=== PATIENT | female | born 1980 | race Two or more races ===

== ENCOUNTER 2022-07-15 13:00 | Emergency (ER) | payer BC, OTHER ==
[~2022-07-15] VITALS: Ht 157.5 cm; Wt 84.0 kg
[2022-07-15 13:39] VITALS: BP 121/57
[2022-07-15 14:19] LABS: Basophils # (auto) 0.1 10 ^3/uL (0-0.2); Basophils % (auto) 0.5 % (0.0-2.0); Eosinophils # (auto) 0 10 ^3/uL (0-0.8); Mean Corpuscular Volume 84.2 fL (80.0-100.0); Monocytes # (auto) 0.4 10 ^3/uL (0-1.3); Red Cell Distribution Width 14.2 % (11.8-14.3)
[2022-07-15 14:20] LABS: Eosinophils % (auto) 0.4 % (0.0-7.0); Hematocrit 32.6 % (36.0-46.0); Hemoglobin 10.2 g/dL (12.2-16.2); Lymphocytes # (auto) 1.3 10 ^3/uL (0.4-5.4); Lymphocytes % (auto) 10.8 % (10.0-50.0); Mean Corpuscular Hemoglobin 26.5 pg (28.0-32.0); Mean Corpuscular Hgb Conc. 31.4 g/dL (32.0-36.0); Monocytes % (auto) 3.2 % (0.0-12.0); Neutrophils # (auto) 10.2 10 ^3/uL (1.6-8.6); Neutrophils % (auto) 85.1 % (37.0-80.0); Red Blood Cells 3.87 10^6/uL (4.0-5.20); White Blood Cell 11.9 10^3/uL (4.4-10.8)
[2022-07-15 14:37] LABS: Albumin 2.5 g/dL (3.4-5.0); Anion Gap 11 (5-15); Blood Urea Nitrogen 18 mg/dL (7-18); Calcium 8.7 mg/dL (8.5-10.1); Carbon Dioxide 22 mmol/L (21-32); Chloride 101 mmol/L (98-107); Glucose 355 mg/dL (74-106); Potassium 3.8 mmol/L (3.5-5.1); Sodium 134 mmol/L (136-145)
[2022-07-15 14:40] LABS: Alanine Aminotransferase 13 U/L (13-56); Alkaline Phosphatase 150 U/L (45-117); Aspartate Aminotransferase < 3 U/L (15-37); BUN/Creatinine Ratio 12.1; Bilirubin, Total 0.2 mg/dL (0.2-1.0); GFR African American 49 mL/min; GFR Non-African American 40 mL/min; Total Protein 9.3 g/dL (6.4-8.2)
[2022-07-15 14:41] LABS: Lactic Acid w/Reflex 2.4 mmol/L (0.4-2.0)
[2022-07-15 22:32] LABS: Urine Bacteria FEW /hpf (None Seen); Urine Blood Negative /uL (Negative); Urine Hyaline Cast FEW /lpf (0 - 2); Urine Mucus FEW (None Seen); Urine Specific Gravity 1.029 (1.001-1.035); Urine WBC 45 /hpf (0 - 5)
== END 2022-07-15 21:18 | disposition left against medical advice (07) ==
LOC: ER 13:00
DX: M79.671 Pain in right foot (principal); Z53.21 Procedure and treatment not carried out due to patient leaving prior to being seen by health care provider
CPT/HCPCS: 36415; 80053; 81001; 83605; 85025; 87040

== ENCOUNTER 2022-07-19 08:07 | Emergency (ER) | payer BC, MEDICAID ==
[~2022-07-19] VITALS: Ht 157.5 cm; Wt 84.0 kg
[2022-07-19 08:36] LABS: Eosinophils # (auto) 0.1 10 ^3/uL (0-0.8); Lymphocytes # (auto) 1.5 10 ^3/uL (0.4-5.4); Red Blood Cells 3.47 10^6/uL (4.0-5.20)
[2022-07-19 08:38] LABS: Basophils # (auto) 0.1 10 ^3/uL (0-0.2); Eosinophils % (auto) 0.8 % (0.0-7.0); Hematocrit 29.2 % (36.0-46.0); Hemoglobin 9.2 g/dL (12.2-16.2); Lymphocytes % (auto) 11.3 % (10.0-50.0); Mean Corpuscular Hemoglobin 26.7 pg (28.0-32.0); Mean Corpuscular Hgb Conc. 31.6 g/dL (32.0-36.0); Mean Corpuscular Volume 84.3 fL (80.0-100.0); Monocytes # (auto) 0.6 10 ^3/uL (0-1.3); Monocytes % (auto) 4.3 % (0.0-12.0); Neutrophils % (auto) 82.6 % (37.0-80.0); Nucleated Red Blood Cells % 0.2 %; Red Cell Distribution Width 14.4 % (11.8-14.3); White Blood Cell 13.3 10^3/uL (4.4-10.8)
[2022-07-19 09:19] LABS: Albumin 2.2 g/dL (3.4-5.0); BUN/Creatinine Ratio 16.9; Calcium 8.6 mg/dL (8.5-10.1)
[2022-07-19 09:34] LABS: Bilirubin, Total 0.3 mg/dL (0.2-1.0); Potassium 3.8 mmol/L (3.5-5.1); Total Protein 8.6 g/dL (6.4-8.2)
[2022-07-19] MEDS ORDERED: PIPERACILLIN-TAZOB 3.375GM 100 ML IV ONE (09:45)
[2022-07-19] MEDS ORDERED: VANCOMYCIN 1GM/250ML 250 ML IV ONE (09:45)
[2022-07-19] MEDS ORDERED: SODIUM CHLORIDE 0.9% 1,000 ML IV ONE (10:15)
[2022-07-19] MEDS ORDERED: InsuLIN REG 1unit/0.01ml Soln (100units/ml) IV ONE ×2 (11:15→17:30)
[2022-07-19] MEDS ORDERED: CLINDAMYCIN 600MG IV 50 ML IV ONE (11:15)
[2022-07-19] MEDS ORDERED: MORPHINE SULFATE INJ 2 MG/ml SYRG IV ONE (16:30)
[2022-07-19 18:52] VITALS: BP 131/58
[2022-07-19] MEDS ORDERED: IBUPROFEN 800 MG TAB PO ONE (19:30)
== END 2022-07-19 19:11 | disposition short-term general hospital (02) ==
LOC: ER 08:07
DX: M72.6 Necrotizing fasciitis (principal); I10 Essential (primary) hypertension; E11.9 Type 2 diabetes mellitus without complications; Z88.8 Allergy status to other drugs, medicaments and biological substances; Z20.822 Contact with and (suspected) exposure to COVID-19
CPT/HCPCS: 36415; 36600; 73630; 73700; 80053; 82805; 82962; 83605; 84702; 85025; 85652; 86141; 86850; 86900; 86901; 87040; 87077; 87186; 87205; 87426; 96365; 96366; 96367; 96368; 96375; 99285; J1815; J2270; J2543; J3370; J3490; J7030

== ENCOUNTER 2023-05-18 17:47 | Emergency (ER) | payer BC, MEDICAID ==
[~2023-05-18] VITALS: Ht 157.5 cm; Wt 75.0 kg
[2023-05-18 20:00] VITALS: PULSE 88; RESP 18; O2SAT 99
[2023-05-18 20:01] LABS: Basophils # (auto) 0 10 ^3/uL (0-0.2); Basophils % (auto) 0.6 % (0.0-2.0); Eosinophils # (auto) 0.3 10 ^3/uL (0-0.8); Eosinophils % (auto) 4.3 % (0.0-7.0); Hematocrit 32.2 % (36.0-46.0); Hemoglobin 10.4 g/dL (12.2-16.2); Lymphocytes # (auto) 1.3 10 ^3/uL (0.4-5.4); Lymphocytes % (auto) 16.6 % (10.0-50.0); Mean Corpuscular Hemoglobin 27.5 pg (28.0-32.0); Mean Corpuscular Hgb Conc. 32.3 g/dL (32.0-36.0); Mean Corpuscular Volume 85.2 fL (80.0-100.0); Monocytes # (auto) 0.3 10 ^3/uL (0-1.3); Monocytes % (auto) 3.9 % (0.0-12.0); Neutrophils # (auto) 5.8 10 ^3/uL (1.6-8.6); Neutrophils % (auto) 74.6 % (37.0-80.0); Red Blood Cells 3.78 10^6/uL (4.0-5.20); Red Cell Distribution Width 14.5 % (11.8-14.3); White Blood Cell 7.8 10^3/uL (4.4-10.8)
[2023-05-18 20:24] LABS: Alanine Aminotransferase 20 U/L (13-56); Albumin 2.9 g/dL (3.4-5.0); Anion Gap 7 (5-15); Aspartate Aminotransferase 11 U/L (15-37); BUN/Creatinine Ratio 19.5 (10.0-20.0); Blood Urea Nitrogen 22 mg/dL (7-18); Calcium 8.3 mg/dL (8.5-10.1); Carbon Dioxide 22 mmol/L (21-32); Chloride 106 mmol/L (98-107); GFR African American 67 mL/min; GFR Non-African American 55 mL/min; Glucose 346 mg/dL (74-106); Lipase 145 U/L (73-393); Potassium 3.8 mmol/L (3.5-5.1); Sodium 135 mmol/L (136-145)
[2023-05-18 20:27] LABS: Alkaline Phosphatase 125 U/L (45-117); Bilirubin, Total 0.2 mg/dL (0.2-1.0); Total Protein 8.3 g/dL (6.4-8.2)
[2023-05-18 20:29] LABS: Blood Alcohol < 3.0 mg/dL (<10)
[2023-05-19] MEDS ORDERED: cefTRIAXone SOD 1,000 MG VL IM ONE (01:30)
[2023-05-19] MEDS ORDERED: DEXTROSE (50%) 50ML SYRG IV PRN (01:30)
[2023-05-19] MEDS ORDERED: SULFAMETHOX W/TRIMETH(800/160MG) DS TAB PO ONE (01:30)
[2023-05-19 02:14] VITALS: BP 114/51; PULSE 89; RESP 19; TEMP 98.3; O2SAT 99
[2023-05-19] MEDS ORDERED: ACCU-CHEK COMFORT CURVE STRIP VI SCH (06:00)
[2023-05-19] MEDS ORDERED: InsuLIN REG 1unit/0.01ml Soln (100units/ml) SC SCH (06:00)
== END 2023-05-19 04:36 | disposition left against medical advice (07) ==
LOC: ER 17:47 → EDBD 17:47 → ER 05-19 04:36
DX: R45.851 Suicidal ideations (principal); L03.115 Cellulitis of right lower limb; E11.65 Type 2 diabetes mellitus with hyperglycemia; I10 Essential (primary) hypertension; F32.9 Major depressive disorder, single episode, unspecified; R06.02 Shortness of breath
CPT/HCPCS: 36415; 73630; 80053; 80320; 83605; 83690; 83880; 84484; 85025; 96372; 99285; J0696

== ENCOUNTER 2023-12-10 04:58 | Emergency (ER) | payer BC, MEDICAID ==
[~2023-12-10] VITALS: Ht 157.5 cm; Wt 87.2 kg
[2023-12-10 05:04] VITALS: BP 146/79; RESP 22; O2SAT 100
[2023-12-10 05:27] LABS: Basophils # (auto) 0 10 ^3/uL (0-0.2); Basophils % (auto) 0.4 % (0.0-2.0); Eosinophils # (auto) 0.1 10 ^3/uL (0-0.8); Eosinophils % (auto) 0.7 % (0.0-7.0); Hematocrit 30.6 % (36.0-46.0); Hemoglobin 10.1 g/dL (12.2-16.2); Lymphocytes # (auto) 0.7 10 ^3/uL (0.4-5.4); Lymphocytes % (auto) 7.5 % (10.0-50.0); Mean Corpuscular Hemoglobin 27.2 pg (28.0-32.0); Mean Corpuscular Hgb Conc. 32.9 g/dL (32.0-36.0); Mean Corpuscular Volume 82.8 fL (80.0-100.0); Monocytes # (auto) 0.4 10 ^3/uL (0-1.3); Monocytes % (auto) 3.9 % (0.0-12.0); Neutrophils # (auto) 8.7 10 ^3/uL (1.6-8.6); Neutrophils % (auto) 87.5 % (37.0-80.0); Red Cell Distribution Width 14.4 % (11.8-14.3)
[2023-12-10 05:44] LABS: Alanine Aminotransferase 26 U/L (7-40); Albumin 3.8 g/dL (3.2-4.8); Alkaline Phosphatase 152 U/L (46-116); Anion Gap 7 (5-15); Aspartate Aminotransferase 14 U/L (13-40); BUN/Creatinine Ratio 20.7 (10.0-20.0); Blood Urea Nitrogen 23 mg/dL (9-23); Calcium 8.5 mg/dL (8.7-10.4); Carbon Dioxide 23 mmol/L (20-30); Chloride 98 mmol/L (98-107); Glucose 332 mg/dL (74-106); Potassium 4.7 mmol/L (3.5-5.1); Sodium 128 mmol/L (136-145)
[2023-12-10 05:45] LABS: Bilirubin, Total 0.2 mg/dL (0.2-1.0); Total Protein 7.9 g/dL (5.7-8.2)
[2023-12-10 06:10] VITALS: PULSE 94
[2023-12-10 07:49] LABS: Erythrocyte Sedimentation Rate 95 mm/hr (0-20)
[2023-12-10] MEDS ORDERED: CLINDAMYCIN 600MG IV 50 ML IV ONE (09:15)
== END 2023-12-10 11:01 | disposition left against medical advice (07) ==
LOC: ER 04:58
DX: M86.8X7 Other osteomyelitis, ankle and foot (principal); R70.0 Elevated erythrocyte sedimentation rate; R07.89 Other chest pain; I10 Essential (primary) hypertension; E11.9 Type 2 diabetes mellitus without complications; Z88.8 Allergy status to other drugs, medicaments and biological substances
CPT/HCPCS: 36415; 71045; 73700; 80053; 84484; 85025; 85652; 93005

== ENCOUNTER 2024-05-01 21:49 | Inpatient (IN) | payer BC, MEDICAID ==
[~2024-05-01] VITALS: Ht 157.5 cm; Wt 88.1 kg
[2024-05-01 22:22] LABS: Eosinophils # (auto) 0.2 10 ^3/uL (0-0.8); Lymphocytes # (auto) 1.6 10 ^3/uL (0.4-5.4); Lymphocytes % (auto) 16.3 % (10.0-50.0); Neutrophils # (auto) 7.6 10 ^3/uL (1.6-8.6); Red Cell Distribution Width 16.9 % (11.8-14.3)
[2024-05-01 22:24] LABS: Basophils # (auto) 0 10 ^3/uL (0-0.2); Basophils % (auto) 0.4 % (0.0-2.0); Hematocrit 28.7 % (36.0-46.0); Hemoglobin 9.4 g/dL (12.2-16.2); Mean Corpuscular Hemoglobin 26.9 pg (28.0-32.0); Mean Corpuscular Hgb Conc. 32.8 g/dL (32.0-36.0); Monocytes # (auto) 0.4 10 ^3/uL (0-1.3); Monocytes % (auto) 3.9 % (0.0-12.0); Neutrophils % (auto) 77.4 % (37.0-80.0); White Blood Cell 9.8 10^3/uL (4.4-10.8)
[2024-05-01 22:42] LABS: Albumin 3.6 g/dL (3.2-4.8); Alkaline Phosphatase 164 U/L (46-116); Anion Gap 6 (5-15); Aspartate Aminotransferase < 8 U/L (13-40); BUN/Creatinine Ratio 12.3 (10.0-20.0); Blood Urea Nitrogen 19 mg/dL (9-23); Calcium 9.1 mg/dL (8.7-10.4); Carbon Dioxide 21 mmol/L (20-30); Chloride 99 mmol/L (98-107); Glucose 390 mg/dL (74-106); Potassium 4.3 mmol/L (3.5-5.1); Sodium 126 mmol/L (136-145)
[2024-05-01 22:43] LABS: Bilirubin, Total 0.2 mg/dL (0.2-1.0); Total Protein 8.4 g/dL (5.7-8.2)
[2024-05-01 22:46] LABS: Alanine Aminotransferase < 9 U/L (7-40)
[2024-05-02] VITALS (9 sets, daily range): BP systolic 109–140; BP diastolic 66–75; PULSE 80–98; RESP 16–23; TEMP 97.8–98.3; O2SAT 93–98
[2024-05-02] MEDS: SODIUM CHLORIDE 0.9% 1,000 ML IV ONE ×2 (00:43→05:18)
[2024-05-02] MEDS: ONDANSETRON HCL 4 MG/2 ML VIAL IV ONE ×2 (00:43→05:16)
[2024-05-02] MEDS: MORPHINE SULFATE 4 MG/ML SYR/VIAL IV ONE ×2 (00:44→05:17)
[2024-05-02] MEDS: metroNIDAZOLE 500MG/100ML 100 ML IV ONE (05:16)
[2024-05-02] MEDS: ceFAZolin 2 GM/D5W50ml 50 ML IV ONE (05:35)
[2024-05-02 08:27] LABS: Urine Bacteria MANY /hpf (None Seen); Urine Blood 1+ /uL (Negative); Urine Mucus FEW (None Seen); Urine Protein, UAD TRACE (Negative); Urine Specific Gravity 1.007 (1.001-1.035); Urine Urobilinogen Normal (Negative); Urine WBC 43 /hpf (0 - 5)
[2024-05-02 08:30] LABS: Urine Clarity Cloudy (Clear); Urine Color Yellow (Yellow)
[2024-05-02] MEDS: PIPERACILLIN-TAZOB 3.375GM 100 ML IV ONE (09:00)
[2024-05-02 09:32] LABS: INR 0.98 (0.9-1.15); Partial Thromboplastin Time 25.8 SEC (24.5-34.5); Prothrombin Time 10.4 sec (9.3-11.8)
[2024-05-02] MEDS ORDERED: MORPHINE SULFATE INJ 2 MG/ml SYRG IV PRN (10:15)
[2024-05-02] MEDS ORDERED: NITROGLYCERIN 0.4 MG SL TAB SL PRN (10:15)
[2024-05-02 11:13] LABS: Albumin 3.6 g/dL (3.2-4.8); Alkaline Phosphatase 161 U/L (46-116); Anion Gap 6 (5-15); Aspartate Aminotransferase < 8 U/L (13-40); BUN/Creatinine Ratio 11.7 (10.0-20.0); Bilirubin, Total 0.2 mg/dL (0.2-1.0); Blood Urea Nitrogen 18 mg/dL (9-23); Calcium 9.1 mg/dL (8.7-10.4); Carbon Dioxide 21 mmol/L (20-30); Chloride 100 mmol/L (98-107); Glucose 384 mg/dL (74-106); Potassium 4.4 mmol/L (3.5-5.1); Sodium 127 mmol/L (136-145)
[2024-05-02] MEDS: LIDOCAINE W/ EPINEPHRINE 1% 20ML VIAL ONE (11:13)
[2024-05-02 11:14] LABS: Total Protein 8.4 g/dL (5.7-8.2)
[2024-05-02 11:16] LABS: Alanine Aminotransferase < 9 U/L (7-40)
[2024-05-02] MEDS: MORPHINE SULFATE INJ 2 MG/ml SYRG IV PRN (13:30)
[2024-05-02] MEDS: SODIUM CHLORIDE 0.9% 1,000 ML IV SCH (14:00)
[2024-05-02] MEDS: ONDANSETRON HCL 4 MG/2 ML VIAL IV PRN (14:02)
[2024-05-02] MEDS ORDERED: PRA1C PO (20:34)
[2024-05-02] MEDS ORDERED: PRAZ2CAP2 PO (20:34)
[2024-05-02] MEDS ORDERED: QUET200T4 PO (20:35)
[2024-05-02] MEDS ORDERED: CITA10TA8 PO (20:36)
[2024-05-02] MEDS: PRAZOSIN HCL 1 MG CAP PO ONE (20:45)
[2024-05-02] MEDS: CITALOPRAM HYDROBR 20 MG TAB PO ONE (20:47)
[2024-05-02] MEDS: QUEtiapine FUMARATE 100 MG TAB PO ONE (20:48)
[2024-05-02] MEDS: HYDROcodone-ACET 5/325MG TAB PO PRN (20:48)
[2024-05-03 01:00] VITALS: BP 105/67; PULSE 94; RESP 20; TEMP 98.4; O2SAT 98
[2024-05-03 05:00] VITALS: BP 111/69; PULSE 90; RESP 16; TEMP 98.7; O2SAT 96
[2024-05-03 07:53] LABS: Basophils # (auto) 0 10 ^3/uL (0-0.2); Eosinophils # (auto) 0.3 10 ^3/uL (0-0.8); Hemoglobin 8.6 g/dL (12.2-16.2); Lymphocytes # (auto) 1.5 10 ^3/uL (0.4-5.4); Monocytes # (auto) 0.4 10 ^3/uL (0-1.3); Red Cell Distribution Width 17.2 % (11.8-14.3); White Blood Cell 7.5 10^3/uL (4.4-10.8)
[2024-05-03 07:56] LABS: Basophils % (auto) 0.7 % (0.0-2.0); Eosinophils % (auto) 4.2 % (0.0-7.0); Lymphocytes % (auto) 19.8 % (10.0-50.0); Mean Corpuscular Hemoglobin 27.1 pg (28.0-32.0); Mean Corpuscular Hgb Conc. 33.3 g/dL (32.0-36.0); Mean Corpuscular Volume 81.3 fL (80.0-100.0); Neutrophils # (auto) 5.2 10 ^3/uL (1.6-8.6); Neutrophils % (auto) 70.3 % (37.0-80.0); Nucleated Red Blood Cells % 0.1 %; Red Blood Cells 3.19 10^6/uL (4.0-5.20)
[2024-05-03] MEDS: LIDOCAINE W/ EPINEPHRINE 1% 20ML VIAL ONE (07:58)
[2024-05-03] MEDS: LIDOCAINE 2% JELLY 11ml (GLYDO) ONE (07:58)
[2024-05-03 08:12] VITALS: PULSE 82; RESP 14; O2SAT 97
[2024-05-03 08:14] LABS: Alkaline Phosphatase 125 U/L (46-116); Anion Gap 11 (5-15); BUN/Creatinine Ratio 10.9 (10.0-20.0); Blood Urea Nitrogen 12 mg/dL (9-23); Calcium 8.5 mg/dL (8.7-10.4); Carbon Dioxide 16 mmol/L (20-30); Chloride 108 mmol/L (98-107); Glucose 189 mg/dL (74-106); Magnesium 1.3 mg/dL (1.6-2.6); Potassium 4.1 mmol/L (3.5-5.1)
[2024-05-03 08:15] LABS: Albumin 3.2 g/dL (3.2-4.8)
[2024-05-03 08:16] LABS: Aspartate Aminotransferase 10 U/L (13-40); Bilirubin, Total 0.2 mg/dL (0.2-1.0); Total Protein 7.4 g/dL (5.7-8.2)
[2024-05-03 08:17] LABS: Alanine Aminotransferase 9 U/L (7-40); Sodium 135 mmol/L (136-145)
[2024-05-03] MEDS ORDERED: MIDAZOLAM HCL 2MG/2ML 2ml VIAL (1mg/ml) ONE (09:55)
[2024-05-03] MEDS ORDERED: fentaNYL CITRATE 100 MCG/2 ML VL ONE (09:55)
[2024-05-03] MEDS ORDERED: Quetiapine Fumerate (Seroquel Xr) 300 MG PO SCH (10:00)
[2024-05-03] MEDS ORDERED: PROPOFOL 10 MG/ML 20 ML IV ONE (10:02)
[2024-05-03] MEDS ORDERED: HYDROmorphone HCL 2 MG/ML VL/or syr ONE (10:41)
[2024-05-03] MEDS ORDERED: ONDANSETRON HCL 4 MG/2 ML VIAL ONE (10:41)
[2024-05-03] MEDS ORDERED: LIDOCAINE 2% (LOCAL ANESTH.) PF 5ml SDV ONE (10:41)
[2024-05-03] MEDS ORDERED: ceFAZolin 1GM VL ONE (10:42)
[2024-05-03] MEDS ORDERED: HYDROmorphone HCL 2 MG/ML VL/or syr IV PRN ×2 (11:15)
[2024-05-03] MEDS: ONDANSETRON HCL 4 MG/2 ML VIAL IV ONE (11:33)
[2024-05-03 13:31] VITALS: PULSE 93; RESP 14; O2SAT 98
[2024-05-03] MEDS ORDERED: GLYCOPYRROLATE 0.2 MG/ML 1ML VIAL ONE (13:31)
[2024-05-03] MEDS ORDERED: NEOSTIGMINE 1 MG/ML INJ (10mg/10ML VIAL) ONE (13:31)
[2024-05-03] MEDS ORDERED: ROCURONIUM 10MG/ML 10ML VIAL IV ONE (13:32)
[2024-05-03] MEDS: HYDROmorphone HCL 2 MG/ML VL/or syr IV ONE (14:04)
[2024-05-03] MEDS: HYDROmorphone HCL 2 MG/ML VL/or syr ONE (14:48)
[2024-05-03] MEDS: SODIUM CHLORIDE 0.9% 1,000 ML IV SCH (15:00)
[2024-05-03 16:00] VITALS: BP 132/76; PULSE 95; RESP 21; TEMP 98.3; O2SAT 90
[2024-05-03] MEDS ORDERED: DEXTROSE (50%) 50ML SYRG IV PRN (16:15)
[2024-05-03] MEDS: ACETAMINOPHEN 325 MG TAB PO PRN (16:53)
[2024-05-03] MEDS: PRAZOSIN HCL 1 MG CAP PO SCH (16:54)
[2024-05-03] MEDS: CITALOPRAM HYDROBR 20 MG TAB PO SCH (16:54)
[2024-05-03] MEDS: PIPERACILLIN-TAZOB 3.375GM 100 ML IV SCH (17:30)
[2024-05-03] MEDS: ACCU-CHEK COMFORT CURVE STRIP VI SCH (17:40)
[2024-05-03] MEDS: InsuLIN REG 1unit/0.01ml Soln (100units/ml) SC SCH (17:42)
[2024-05-03] MEDS ORDERED: LISI2.5T47 PO (17:55)
[2024-05-03] MEDS ORDERED: FERR325T24 PO (17:55)
[2024-05-03] MEDS ORDERED: HYDR-3682 PO (17:55)
[2024-05-03] MEDS ORDERED: METO-158 PO ×2 (17:55)
[2024-05-03] MEDS: LORazepam 2MG/ML-1ML VIAL IV PRN (18:40)
[2024-05-03] MEDS: HYDROmorphone HCL 2 MG/ML VL/or syr IV PRN (20:19)
[2024-05-03 21:00] VITALS: BP 143/83; PULSE 103; RESP 19; TEMP 98.1; O2SAT 93
[2024-05-03] MEDS: QUEtiapine FUMARATE 100 MG TAB PO SCH (21:56)
[2024-05-04] VITALS (7 sets, daily range): BP systolic 104–152; BP diastolic 58–77; PULSE 79–109; RESP 14–23; TEMP 98–98.6; O2SAT 91–97
[2024-05-04 07:26] LABS: Basophils # (auto) 0 10 ^3/uL (0-0.2); Eosinophils # (auto) 0 10 ^3/uL (0-0.8); Mean Corpuscular Hemoglobin 26.9 pg (28.0-32.0); Monocytes # (auto) 0.5 10 ^3/uL (0-1.3)
[2024-05-04 07:30] LABS: Basophils % (auto) 0.3 % (0.0-2.0); Hematocrit 25.3 % (36.0-46.0); Hemoglobin 8.3 g/dL (12.2-16.2); Lymphocytes # (auto) 0.8 10 ^3/uL (0.4-5.4); Lymphocytes % (auto) 6.3 % (10.0-50.0); Mean Corpuscular Volume 81.5 fL (80.0-100.0); Monocytes % (auto) 4.1 % (0.0-12.0); Neutrophils # (auto) 11.4 10 ^3/uL (1.6-8.6); Neutrophils % (auto) 89.3 % (37.0-80.0); White Blood Cell 12.8 10^3/uL (4.4-10.8)
[2024-05-04 07:39] LABS: Alanine Aminotransferase 15 U/L (7-40); Albumin 3.3 g/dL (3.2-4.8); Alkaline Phosphatase 130 U/L (46-116); Anion Gap 6 (5-15); Aspartate Aminotransferase 26 U/L (13-40); BUN/Creatinine Ratio 8.8 (10.0-20.0); Blood Urea Nitrogen 11 mg/dL (9-23); Calcium 8.5 mg/dL (8.7-10.4); Carbon Dioxide 23 mmol/L (20-30); Chloride 104 mmol/L (98-107); Glucose 313 mg/dL (74-106); Potassium 3.9 mmol/L (3.5-5.1); Sodium 133 mmol/L (136-145); Total Protein 7.5 g/dL (5.7-8.2)
[2024-05-04 07:48] LABS: Bilirubin, Total 0.2 mg/dL (0.2-1.0)
[2024-05-04] MEDS ORDERED: SUCCINYLCHOLINE CHLORIDE 20 MG/ML 10ML VIAL IV ONE (12:25)
[2024-05-05] VITALS (8 sets, daily range): BP systolic 104–134; BP diastolic 53–75; PULSE 91–102; RESP 14–24; TEMP 98.6–99; O2SAT 93–97
[2024-05-05 06:33] LABS: Basophils # (auto) 0 10 ^3/uL (0-0.2); Basophils % (auto) 0.4 % (0.0-2.0); Eosinophils # (auto) 0.2 10 ^3/uL (0-0.8); Eosinophils % (auto) 2.1 % (0.0-7.0); Hematocrit 22.3 % (36.0-46.0); Hemoglobin 7.3 g/dL (12.2-16.2); Lymphocytes # (auto) 1.5 10 ^3/uL (0.4-5.4); Lymphocytes % (auto) 18.3 % (10.0-50.0); Mean Corpuscular Hemoglobin 26.9 pg (28.0-32.0); Mean Corpuscular Hgb Conc. 32.9 g/dL (32.0-36.0); Mean Corpuscular Volume 81.8 fL (80.0-100.0); Monocytes # (auto) 0.5 10 ^3/uL (0-1.3); Monocytes % (auto) 6.4 % (0.0-12.0); Neutrophils # (auto) 6.1 10 ^3/uL (1.6-8.6); Neutrophils % (auto) 72.8 % (37.0-80.0); Red Blood Cells 2.72 10^6/uL (4.0-5.20); White Blood Cell 8.4 10^3/uL (4.4-10.8)
[2024-05-05 06:47] LABS: Albumin 2.9 g/dL (3.2-4.8); Alkaline Phosphatase 103 U/L (46-116); Anion Gap 6 (5-15); Aspartate Aminotransferase 14 U/L (13-40); BUN/Creatinine Ratio 9.5 (10.0-20.0); Bilirubin, Total 0.2 mg/dL (0.2-1.0); Blood Urea Nitrogen 11 mg/dL (9-23); Calcium 8.2 mg/dL (8.7-10.4); Carbon Dioxide 23 mmol/L (20-30); Chloride 105 mmol/L (98-107); Glucose 198 mg/dL (74-106); Potassium 3.6 mmol/L (3.5-5.1); Sodium 134 mmol/L (136-145); Total Protein 7.1 g/dL (5.7-8.2)
[2024-05-05 06:50] LABS: Alanine Aminotransferase < 9 U/L (7-40)
[2024-05-05] MEDS: SODIUM CHLORIDE 0.9% 1,000 ML IV SCH (08:00)
[2024-05-05] MEDS: DOCUSATE SOD 100 MG CAP PO SCH (10:00)
[2024-05-05] MEDS ORDERED: DOCUSATE SOD 100 MG CAP PO SCH (22:00)
[2024-05-05] MEDS: MAGNESIUM OXIDE 400 MG TAB PO SCH (22:17)
[2024-05-06] VITALS (7 sets, daily range): BP systolic 107–139; BP diastolic 56–72; PULSE 69–95; RESP 17–22; TEMP 97.8–99.2; O2SAT 92–100
[2024-05-06 05:12] LABS: Basophils # (auto) 0 10 ^3/uL (0-0.2); Basophils % (auto) 0.5 % (0.0-2.0); Eosinophils # (auto) 0.3 10 ^3/uL (0-0.8); Eosinophils % (auto) 3.6 % (0.0-7.0); Hematocrit 23.7 % (36.0-46.0); Hemoglobin 7.7 g/dL (12.2-16.2); Lymphocytes # (auto) 1.7 10 ^3/uL (0.4-5.4); Lymphocytes % (auto) 21.9 % (10.0-50.0); Mean Corpuscular Hemoglobin 26.6 pg (28.0-32.0); Mean Corpuscular Hgb Conc. 32.7 g/dL (32.0-36.0); Mean Corpuscular Volume 81.3 fL (80.0-100.0); Monocytes # (auto) 0.3 10 ^3/uL (0-1.3); Monocytes % (auto) 4.4 % (0.0-12.0); Neutrophils # (auto) 5.3 10 ^3/uL (1.6-8.6); Neutrophils % (auto) 69.6 % (37.0-80.0); Red Blood Cells 2.91 10^6/uL (4.0-5.20); Red Cell Distribution Width 16.9 % (11.8-14.3); White Blood Cell 7.6 10^3/uL (4.4-10.8)
[2024-05-06 05:24] LABS: Chloride 106 mmol/L (98-107); Sodium 136 mmol/L (136-145)
[2024-05-06 05:25] LABS: Anion Gap 6 (5-15); Calcium 8.4 mg/dL (8.7-10.4); Carbon Dioxide 24 mmol/L (20-30)
[2024-05-06 05:30] LABS: Blood Urea Nitrogen 9 mg/dL (9-23); Glucose 173 mg/dL (74-106)
[2024-05-06 05:31] LABS: Magnesium 1.7 mg/dL (1.6-2.6)
[2024-05-06 05:32] LABS: Phosphorus 2.8 mg/dL (2.4-5.1)
[2024-05-06 09:41] LABS: Alanine Aminotransferase 10 U/L (7-40); Albumin 3.1 g/dL (3.2-4.8); Alkaline Phosphatase 113 U/L (46-116); Aspartate Aminotransferase 10 U/L (13-40); Bilirubin, Direct < 0.1 mg/dL (<0.3); Bilirubin, Total 0.2 mg/dL (0.2-1.0); Total Protein 7.2 g/dL (5.7-8.2)
[2024-05-06] MEDS ORDERED: DEXTROSE (50%) 50ML SYRG IV PRN (15:15)
[2024-05-06] MEDS: D5W/SOD CHL 0.45% 1,000 ML IV SCH (15:29)
[2024-05-06] MEDS: ACCU-CHEK COMFORT CURVE STRIP VI SCH (18:08)
[2024-05-06] MEDS: InsuLIN REG 1unit/0.01ml Soln (100units/ml) SC SCH (18:17)
[2024-05-06] MEDS: LACTULOSE 20Gm/30ML SOLN PO PRN (21:18)
[2024-05-07] VITALS (7 sets, daily range): BP systolic 105–134; BP diastolic 56–73; PULSE 84–103; RESP 16–18; TEMP 97.9–98.9; O2SAT 92–98
[2024-05-07] MEDS: ENOXAPARIN SOD 40 MG/0.4 ML SYRINGE SC SCH (09:59)
[2024-05-07] MEDS: HYDROmorphone HCL 2 MG/ML VL/or syr IV PRN (19:43)
[2024-05-08] VITALS (7 sets, daily range): BP systolic 100–146; BP diastolic 57–77; PULSE 84–120; RESP 17–20; TEMP 97.9–98.7; O2SAT 94–97
[2024-05-08 06:16] LABS: Chloride 104 mmol/L (98-107); Potassium 3.7 mmol/L (3.5-5.1); Sodium 135 mmol/L (136-145)
[2024-05-08 06:18] LABS: Anion Gap 7 (5-15); Calcium 8.4 mg/dL (8.7-10.4); Carbon Dioxide 24 mmol/L (20-30)
[2024-05-08 06:22] LABS: Glucose 163 mg/dL (74-106)
[2024-05-08 06:29] LABS: BUN/Creatinine Ratio 4.2 (10.0-20.0); Blood Urea Nitrogen < 5 mg/dL (9-23)
[2024-05-08 07:58] LABS: Basophils # (auto) 0 10 ^3/uL (0-0.2); Basophils % (auto) 0.4 % (0.0-2.0); Eosinophils # (auto) 0.3 10 ^3/uL (0-0.8); Eosinophils % (auto) 4.1 % (0.0-7.0); Hemoglobin 8.2 g/dL (12.2-16.2); Lymphocytes # (auto) 2.1 10 ^3/uL (0.4-5.4); Lymphocytes % (auto) 25.1 % (10.0-50.0); Mean Corpuscular Hemoglobin 26.3 pg (28.0-32.0); Mean Corpuscular Hgb Conc. 32.9 g/dL (32.0-36.0); Monocytes # (auto) 0.4 10 ^3/uL (0-1.3); Monocytes % (auto) 4.8 % (0.0-12.0); Neutrophils # (auto) 5.4 10 ^3/uL (1.6-8.6); Neutrophils % (auto) 65.6 % (37.0-80.0); Red Blood Cells 3.13 10^6/uL (4.0-5.20); Red Cell Distribution Width 16.7 % (11.8-14.3); White Blood Cell 8.2 10^3/uL (4.4-10.8)
[2024-05-08 11:30] LABS: Albumin 3.1 g/dL (3.2-4.8); Bilirubin, Direct 0.1 mg/dL (<0.3); Bilirubin, Total 0.2 mg/dL (0.2-1.0); Total Protein 7.3 g/dL (5.7-8.2)
[2024-05-08] MEDS ORDERED: CEFD300C2 PO (12:23)
[2024-05-08] MEDS ORDERED: HYDR-4902 PO (12:23)
== END 2024-05-08 18:23 | disposition home health service (06) | DRG 415 ==
LOC: EDBD 21:49 → ER 21:49 → OVERFLOW 05-02 10:15 → WEST WING 05-02 13:07 → CENTRAL 05-04 04:49
PROVIDERS: ADMIT Internal Medicine; ATTEND Internal Medicine
PROC: 0FJ44ZZ Inspection of Gallbladder, Percutaneous Endoscopic Approach (ICD-10-PCS; 2024-05-03)
PROC: 0FT40ZZ Resection of Gallbladder, Open Approach (ICD-10-PCS; principal; 2024-05-03 09:51)
DX: K81.2 Acute cholecystitis with chronic cholecystitis (principal); E87.1 Hypo-osmolality and hyponatremia; E11.9 Type 2 diabetes mellitus without complications; I10 Essential (primary) hypertension; F20.9 Schizophrenia, unspecified; F41.9 Anxiety disorder, unspecified; F31.9 Bipolar disorder, unspecified; Z91.041 Radiographic dye allergy status; Z89.431 Acquired absence of right foot
CPT/HCPCS: 36415; 74176; 80048; 80053; 80076; 81001; 81025; 82962; 83735; 84100; 85025; 85610; 85730; 86850; 86900; 86901; 87070; 87075; 87077; 87186; 87205; 96361; 96365; 96367; 96368; 96375; 96376; 97110; 97163; G0378; J0330; J0690; J1815; J2001; J2250; J2405; J2543; J2704; J3490

== ENCOUNTER 2024-05-14 13:05 | Emergency (ER) | payer BC, MEDICAID ==
[~2024-05-14] VITALS: Ht 157.5 cm; Wt 84.0 kg
[~2024-05-14 13:05] MED LIST: CEFD300C2 PO; CITA10TA8 PO; FERR325T24 PO; HYDR-3682 PO; HYDR-4902 PO; LISI2.5T47 PO; METO-158 PO; PRA1C PO; PRAZ2CAP2 PO; QUET200T4 PO
[2024-05-14 13:51] VITALS: BP 103/63; PULSE 87; RESP 16; O2SAT 96
== END 2024-05-14 20:23 | disposition left against medical advice (07) ==
LOC: ER 13:05
DX: T81.89XD Other complications of procedures, not elsewhere classified, subsequent encounter (principal); I10 Essential (primary) hypertension; E11.9 Type 2 diabetes mellitus without complications; F41.9 Anxiety disorder, unspecified; F32.9 Major depressive disorder, single episode, unspecified; F20.9 Schizophrenia, unspecified; F15.90 Other stimulant use, unspecified, uncomplicated; Z98.890 Other specified postprocedural states; Z91.041 Radiographic dye allergy status; Z79.899 Other long term (current) drug therapy; Y92.89 Other specified places as the place of occurrence of the external cause

== ENCOUNTER 2024-06-15 04:52 | Emergency (ER) | payer BC, MEDICAID ==
[~2024-06-15] VITALS: Ht 170.2 cm; Wt 90.0 kg
[~2024-06-15 04:52] MED LIST changes: -PRA1C PO; +PRAZ1CAP2 PO
[2024-06-15 05:05] VITALS: O2SAT 95
[2024-06-15 07:55] LABS: Basophils # (auto) 0.1 10 ^3/uL (0-0.2); Eosinophils # (auto) 0.2 10 ^3/uL (0-0.8); Hemoglobin 10.4 g/dL (12.2-16.2); Red Cell Distribution Width 17.1 % (11.8-14.3)
[2024-06-15 07:57] LABS: Basophils % (auto) 0.8 % (0.0-2.0); Hematocrit 31.1 % (36.0-46.0); Lymphocytes # (auto) 2.2 10 ^3/uL (0.4-5.4); Lymphocytes % (auto) 20.9 % (10.0-50.0); Mean Corpuscular Hemoglobin 27.6 pg (28.0-32.0); Mean Corpuscular Hgb Conc. 33.5 g/dL (32.0-36.0); Mean Corpuscular Volume 82.5 fL (80.0-100.0); Monocytes # (auto) 0.6 10 ^3/uL (0-1.3); Monocytes % (auto) 5.3 % (0.0-12.0); Neutrophils # (auto) 7.6 10 ^3/uL (1.6-8.6); Nucleated Red Blood Cells % 0.1 %; Platelet Count (auto) 570 10^3/uL (140-450); Red Blood Cells 3.77 10^6/uL (4.0-5.20); White Blood Cell 10.7 10^3/uL (4.4-10.8)
[2024-06-15 08:12] LABS: Alanine Aminotransferase 11 U/L (7-40); Albumin 4.3 g/dL (3.2-4.8); Alkaline Phosphatase 132 U/L (46-116); Anion Gap 8 (5-15); Aspartate Aminotransferase < 8 U/L (13-40); BUN/Creatinine Ratio 23.1 (10.0-20.0); Bilirubin, Total 0.3 mg/dL (0.2-1.0); Blood Urea Nitrogen 39 mg/dL (9-23); Calcium 9.9 mg/dL (8.7-10.4); Carbon Dioxide 22 mmol/L (20-30); Chloride 103 mmol/L (98-107); Glucose 251 mg/dL (74-106); Magnesium 1.9 mg/dL (1.6-2.6); Potassium 3.8 mmol/L (3.5-5.1); Sodium 133 mmol/L (136-145); Total Protein 9.7 g/dL (5.7-8.2)
[2024-06-15 09:07] LABS: Lipase 40 U/L (12-53)
[2024-06-15] MEDS: SODIUM CHLORIDE 0.9% 1,000 ML IV ONE (10:24)
[2024-06-15] MEDS: SODIUM CHLORIDE 0.9% 500 ML IVB ONE (10:24)
[2024-06-15] MEDS: HYDROmorphone HCL 2 MG/ML VL/or syr IV ONE (10:25)
[2024-06-15] MEDS: ONDANSETRON HCL 4 MG/2 ML VIAL IV ONE (10:25)
[2024-06-15 10:36] VITALS: PULSE 106; RESP 23; O2SAT 98
[2024-06-15 13:48] LABS: Amphetamine Screen, Urine Pos (NEGATIVE)
[2024-06-15 13:49] LABS: Barbiturate Scree,Urine Neg (NEGATIVE); Benzodiazephine Screen, Urine Neg (NEGATIVE); Cannabinoid Screen, Urine Neg (NEGATIVE); Cocaine Screen, Urine Neg (NEGATIVE); Opiate Scree,Urine Neg (NEGATIVE); Phencyclidine Screen, Urine Neg (NEGATIVE)
[2024-06-15 13:50] LABS: Urine Bacteria MOD /hpf (None Seen); Urine Blood 3+ /uL (Negative); Urine Clarity Turbid (Clear); Urine Color Light-Brown (Yellow); Urine Mucus FEW (None Seen); Urine Protein, UAD 1+ (Negative); Urine Specific Gravity 1.018 (1.001-1.035); Urine Urobilinogen Normal (Negative); Urine WBC 128 /hpf (0 - 5); Urine pH 5.5 (5.0-9.0)
[2024-06-15] MEDS ORDERED: BACDST PO (14:35)
[2024-06-15] MEDS ORDERED: BISM262C44 PO (14:35)
[2024-06-15 19:30] VITALS: BP 139/45; PULSE 90; RESP 20; TEMP 98.4; O2SAT 99
== END 2024-06-15 20:50 | disposition home or self-care (01) ==
LOC: EDBD 04:52 → ER 04:52
DX: N39.0 Urinary tract infection, site not specified (principal); R10.2 Pelvic and perineal pain; R10.84 Generalized abdominal pain; D63.8 Anemia in other chronic diseases classified elsewhere; E11.65 Type 2 diabetes mellitus with hyperglycemia; E11.21 Type 2 diabetes mellitus with diabetic nephropathy; I10 Essential (primary) hypertension; E66.01 Morbid (severe) obesity due to excess calories; F41.9 Anxiety disorder, unspecified; F32.9 Major depressive disorder, single episode, unspecified; F20.9 Schizophrenia, unspecified; F15.90 Other stimulant use, unspecified, uncomplicated; Z68.31 Body mass index [BMI] 31.0-31.9, adult; Z98.890 Other specified postprocedural states; Z79.899 Other long term (current) drug therapy; Z91.041 Radiographic dye allergy status
CPT/HCPCS: 36415; 71045; 74176; 80053; 80307; 81001; 83690; 83735; 84702; 85025; 93005; 96360; 96361; 99285; J7030